=== PATIENT | female | born 1980 ===

== ENCOUNTER 2016-11-20 20:22 | Emergency (ER) | payer SELFPAY ==
[2016-11-20 20:58] VITALS: BP 104/71; PULSE 68; RESP 14; TEMP 97.8; O2SAT 98
[2016-11-20 21:32] LABS: RBC URINE 225 /hpf (0-3); URINE BILIRUBIN NEGATIVE (NEGATIVE); URINE BLOOD 3+ (NEGATIVE); URINE COLOR Yellow (YELLOW); URINE GLUCOSE (UA) NORMAL (Normal); URINE KETONE NEGATIVE (NEGATIVE); URINE LEUKOCYTE ESTERASE 3+ Leu/uL (Negative); URINE PROTEIN 2+ mg/dL (NEGATIVE); URINE UROBILINOGEN NORMAL mg/dL (0.2-1.0); WBC URINE 253 /hpf (0-5)
--- NOTE | 2016-11-20 21:50 | C.PDOC ---
History Of Present Illness 36 yo female come in for evaluation of urinary odor developed for past 2 weeks. Since today, pt reports developed pain on urination, urinary frequency, slight blood in urine. Otherwise,p t denies fever, chills, headache, dizziness, sore throat, CP, SOB, dyspnea, diaphoresis, palpitation, cough, abd. pain, V/D, vaginal irritation or discharges. Ambulate to Ed for evaluation, not in any apparent distress. Time Seen by Provider: 11/20/16 21:03 Chief Complaint (Nursing): Female Genitourinary History Per: Patient Past Medical History Reviewed: Historical Data, Nursing Documentation, Vital Signs Vital Signs: Last Vital Signs Temp 97.8 F 11/20/16 20:53 Pulse 68 11/20/16 20:53 Resp 14 11/20/16 20:53 BP 104/71 11/20/16 20:53 Pulse Ox 98 11/20/16 20:53 - Medical History PMH: No Chronic Diseases Surgical History: No Surg Hx Family History: States: No Known Family Hx - Social History Hx Alcohol Use: Yes Hx Substance Use: No - Immunization History Hx Tetanus Toxoid Vaccination: No Hx Influenza Vaccination: No Hx Pneumococcal Vaccination: No Review Of Systems Except As Marked, All Systems Reviewed And Found Negative. Constitutional: Negative for: Fever, Chills ENT: Negative for: Throat Pain, Throat Swelling Respiratory: Negative for: Cough Gastrointestinal: Negative for: Nausea, Vomiting, Abdominal Pain, Diarrhea Genitourinary: Positive for: Dysuria, Frequency, Incontinence, Hematuria. Negative for: Vaginal Discharge, Vaginal Bleeding, Pelvic Pain Skin: Negative for: Rash Neurological: Negative for: Altered Mental Status Physical Exam - Physical Exam Appears: Well, Non-toxic, No Acute Distress Skin: Normal Color, Warm, Dry Eye(s): bilateral: PERRL Nose: No Flaring Oral Mucosa: Moist Throat: No Erythema Neck: Supple Cardiovascular: Rhythm Regular Respiratory: No Stridor, No Wheezing Gastrointestinal/Abdominal: Soft, Tenderness (mild suprapubic tenderness), No Distention, No Guarding, No Rebound Back: No CVA Tenderness Extremity: Normal ROM, No Pedal Edema Neurological/Psych: Oriented x3, Normal Speech ED Course And Treatment O2 Sat by Pulse Oximetry: 98 Pulse Ox Interpretation: Normal Progress Note: On re-evaluation, pt is afebrile, hemodynamicaly stable. NOn- toxic. Tolerate PO well in ED. PulseOx 98% RA. ENT: no acute findings. Lungs : CTA B/L, BS equal B/L. Abd: benign, (-) guarding, (-) guarding. Back: (-) CVA tenderness. UA results review and c/w UTI. Ucx-pending. Pt advised. ref. to f/u with PMD in 2 days for re-eavl. return if any new changes. Disposition Counseled Patient/Family Regarding: Studies Performed, Diagnosis, Need For Followup, Rx Given - Disposition Referrals: [facility] [Outside] Disposition: HOME/ ROUTINE Disposition Time: 21:45 Condition: STABLE Additional Instructions: ENCOURAGE FLUIDS TAKE MEDICATION PRESCRIBED FOLLOW UP WITH PMD IN 2-3 DAYS FOR RE-EVALUATION. RETURN TO ED IF ANY WORSENING OR NEW CHANGES. Prescriptions: Nitrofurantoin Macrocrystals [Macrobid] 1 cap PO BID #14 cap Phenazopyridine HCl [Pyridium] 100 mg PO BID #6 tab Instructions: Urinary Tract Infection in Women (ED) - Clinical Impression Clinical Impression: UTI (urinary tract infection)
== END 2016-11-20 22:15 | disposition home or self-care (01) ==
LOC: C.ER 20:22
DX: N39.0 Urinary tract infection, site not specified (principal)